=== PATIENT | female | born 1985 | race Caucasian/White ===

== ENCOUNTER 2018-12-19 11:34 | Emergency (ER) | payer BC ==
[~2018-12-19] VITALS: Ht 165.1 cm; Wt 72.6 kg
[~2018-12-19 11:34] MED LIST: BENADRYL25 MG PO; IBUPROFEN 800800 M1 PO; KEFLEX500 MG PO; KENALOG60 GM TP; PRENATAL MULTI1 EAC2; VICODIN 5-5001 EACH PO
[2018-12-19 12:08] VITALS: BP 127/81
== END 2018-12-19 12:09 | disposition home or self-care (01) ==
LOC: M.ERS 11:34
DX: F41.9 Anxiety disorder, unspecified (principal); L53.9 Erythematous condition, unspecified